=== PATIENT | female | born 1960 | race Caucasian/White ===

== ENCOUNTER → 2024-12-06 11:00 | Outpatient (CLI) | payer MEDICARE, BC, SELFPAY ==
[2024-12-06 12:37] LABS: Influenza A - CEPHEID Flu A NEGATIVE (NEGATIVE); Influenza B - CEPHEID Flu B NEGATIVE (NEGATIVE); Respiratory Syncytial Virus Negative (Negative)
[2024-12-06 12:40] LABS: COVID-19 CEPHEID 4-PLEX PCR Negative (Negative)
== END ==
PROVIDERS: Visit Provider Chiropractor
DX: J02.9 Acute pharyngitis, unspecified (principal); Z68.25 Body mass index [BMI] 25.0-25.9, adult
CPT/HCPCS: 0241U; 87070; 87880